=== PATIENT | female | born 1955 | race Caucasian/White ===

== ENCOUNTER → 2016-09-21 | Day surgery (SDC) | payer BC ==
[~2016-09-21] MED LIST: ASCO500T2 PO; ATOR40TA PO; CALC500T50 PO; CHOL400C2 PO; DENO60DI SQ; ESTR1TAB12 PO; ESTR1TAB13 PO; EZET1TAB5 PO; FENTANYL PF 100 MCG/2 ML VIAL. IV PRN; GLUCOSAMIN PO; IV RINGERS,LACTATED 1000ML 1,000 ML IV SCH; LIDOCAINE 1% 1 ML SYRINGE. ID PRN; LIDOCAINE 2% PF Vial for OR 5 ML VIAL. ONE; LUTEN; MAGN27TA3 PO; MULT1TAB97 PO; OMEG1CAP16 PO; ONDANSETRON PF 4 MG/2 ML VIAL. IV PRN; PROCHLORPERAZINE 10 MG/2 ML VIAL. IV PRN; PROPOFOL 20 ML IV ONE; VITA1TAB54 PO; ZINC50TA29 PO
[2016-09-21 09:10] VITALS: BP 140/71
== END ==
LOC: ENDOS 07:33
PROVIDERS: ATTEND Internal Medicine Gastroenterology
DX: K22.2 Esophageal obstruction (principal); K29.50 Unspecified chronic gastritis without bleeding; E78.00 Pure hypercholesterolemia, unspecified; I10 Essential (primary) hypertension; M81.0 Age-related osteoporosis without current pathological fracture; M19.90 Unspecified osteoarthritis, unspecified site; Z72.89 Other problems related to lifestyle
CPT/HCPCS: 43235; 43450; J2704

== ENCOUNTER 2021-09-29 07:42 | Outpatient (CLI) | payer MEDICARE, BC ==
[~2021-09-29] VITALS: Ht 170.2 cm; Wt 76.0 kg
[~2021-09-29 07:42] MED LIST changes: -ASCO500T2 PO; +ASCO500T4 PO; -CALC500T50 PO; +CALC500T54 PO; +ESTR-85 PO; -ESTR1TAB12 PO; +EZET1TAB35 PO; -EZET1TAB5 PO; -FENTANYL PF 100 MCG/2 ML VIAL. IV PRN; +HYDROmorphone 2 MG/ML INJ. IVP PRN; -LIDOCAINE 1% 1 ML SYRINGE. ID PRN; -LIDOCAINE 2% PF Vial for OR 5 ML VIAL. ONE; +MORPHINE SULFATE 2 MG/ML INJ. IVP PRN; -OMEG1CAP16 PO; +OMEG1CAP27 PO; -ONDANSETRON PF 4 MG/2 ML VIAL. IV PRN; -PROCHLORPERAZINE 10 MG/2 ML VIAL. IV PRN; +PROCHLORPERAZINE 10 MG/2 ML VIAL. IVP PRN; -PROPOFOL 20 ML IV ONE; -ZINC50TA29 PO; +ZINC50TA39 PO; +fentaNYL PF VIAL 100 MCG/2 ML VIAL IVP PRN
[2021-09-29 07:43] VITALS: BP 119/82
[2021-09-29] MEDS ORDERED: FURO40TA4 PO (07:43)
[2021-09-29] MEDS ORDERED: RIVA20TA2 PO (07:43)
[2021-09-29] MEDS ORDERED: VALS160T3 PO (07:43)
[2021-09-29] MEDS ORDERED: BISO5TAB8 PO (07:43)
--- NOTE | 2021-09-29 07:45 | EKG ---
[facility] [address] [place] [address] Test Date: 2021-09-29 Test Time: 07:40:52 Pat Name: BRINA LABOY Department: Room: Gender: F Rn Ostomy: : 1955 Requested By: MENDY MÁRQUEZ Order Number: [id number] Reading MD: Eugenio Maya MD Measurements Intervals [place] Rate: 72 P: [place]: QRS: 2 QRSD: 140 T: 170 QT: 458 QTc: 503 Interpretive Statements ATRIAL FIBRILLATION LBBB Electronically Signed On 10-02-2021 8:30:19 OSTEOLOGIST by Eugenio Maya MD
[2021-09-29 07:50] LABS: HEMATOCRIT 38.7 % (36.0-47.0); HEMOGLOBIN 12.7 g/dL (12.0-15.5); RED BLOOD COUNT 4.19 x10^6/uL (3.50-5.40); RED CELL DISTRIBUTION WIDTH 13.8 % (11.5-14.5); WHITE BLOOD COUNT 4.4 x10^3/uL (4.0-11.0)
[2021-09-29] MEDS ORDERED: LIDOCAINE 1% PF 2 ML VIAL. ONE (07:52)
[2021-09-29] MEDS ORDERED: IODIXANOL 320 MG/ML 100 ML VIAL. ONE (07:52)
[2021-09-29 07:57] LABS: CALCIUM 8.4 mg/dL (8.5-10.1); CREATININE 0.8 mg/dL (0.6-1.0); GFR 71.8; POTASSIUM 3.7 mmol/L (3.5-5.1)
[2021-09-29] MEDS ORDERED: LIDOCAINE 1% PF 2 ML VIAL. INJ ONE (08:00)
[2021-09-29] MEDS ORDERED: fentaNYL PF VIAL 100 MCG/2 ML VIAL ONE (08:00)
[2021-09-29] MEDS ORDERED: NITROGLYCERIN 200 MCG/2 ML SYRINGE FOR CATH/VASC LAB. IART ONE (08:00)
[2021-09-29] MEDS ORDERED: HEPARIN for IV BOLUS 10,000 UNIT/10 ML VIAL. IART ONE (08:00)
[2021-09-29] MEDS ORDERED: fentaNYL PF VIAL 100 MCG/2 ML VIAL IV ONE (08:00)
[2021-09-29] MEDS ORDERED: IODIXANOL 320 MG/ML 100 ML VIAL. IART ONE (08:00)
[2021-09-29] MEDS ORDERED: VERAPAMIL 5 MG/2 ML VIAL. IART ONE (08:00)
[2021-09-29] MEDS ORDERED: MIDAZOLAM HCL/PF 2 MG/2 ML VIAL. IV ONE (08:00)
[2021-09-29] MEDS ORDERED: VERAPAMIL 5 MG/2 ML VIAL. ONE (08:01)
[2021-09-29] MEDS ORDERED: HEPARIN for IV BOLUS 10,000 UNIT/10 ML VIAL. ONE (08:01)
[2021-09-29] MEDS ORDERED: NITROGLYCERIN 200 MCG/2 ML SYRINGE FOR CATH/VASC LAB. ONE (08:01)
[2021-09-29] MEDS ORDERED: MIDAZOLAM HCL/PF 2 MG/2 ML VIAL. ONE (08:01)
[2021-09-29 08:02] LABS: PROTHROMBIN TIME PATIENT 17.8 SEC (11.7-14.0)
[2021-09-29] MEDS ORDERED: CONTRAST GIVEN. MC PRN (08:15)
[2021-09-29] MEDS ORDERED: DENO60DI SQ (08:21)
[2021-09-29] MEDS ORDERED: AMIODARONE 150 MG/3 ML VIAL ONE (09:09)
[2021-09-29] MEDS ORDERED: AMIODARONE 150 MG/3 ML VIAL IVP ONE (09:15)
[2021-09-29 09:23] VITALS: BP 74/54
--- NOTE | 2021-09-29 09:28 | PDOC ---
MODERATE SEDATION ASSESSMENT RISKS/ALTERNATIVES Risks/Alternatives Risks and alternatives of this type of sedation and procedure discussed with: RISK/ALTERNATIVES: Patient H & P ON CHART H & P H & P on chart and reviewed for co-morbid conditions and appropriate labs. H&P ON CHART: Yes STATUS PREG STATUS ASSESSED: N/A MEDS/ALLERGIES REVIEWED Meds/Allergies Reviewed Medications and Allergies including time and route of recently administered narcotics and sedatives. MEDS/ALLERGIES REVIEWED: Yes ASA RATING ASA RATING: III AIRWAY ASSESSMENT Airway Assessment Airway patency, oral function limitations, presence of caps, crowns, dentures, partials, and ability to extend neck assessed. AIRWAY ASSESSMENT: Yes MALLAMPATI SCORE MALLAMPATI SCORE: II PRE-SEDATION ASSESSMENT PRE-SEDATION ASSESSMENT: Yes MENDY MÁRQUEZ MD Sep 29, 2021 09:28
[2021-09-29] MEDS ORDERED: AMIODARONE HCL 200 MG TABLET. PO ONE (09:30)
--- NOTE | 2021-09-29 09:31 | PDOC4 ---
Procedure Note Procedure: External cardioversion Indications: Atrial fibrillation Complications: None Procedural Details: An informed consent was obtained from patient. Anesthesiology team administered intravenous propofol for deep sedation. Patient was then given 200 J synchronized biphasic DC shock therapies twice without any success with conversion to sinus rhythm. She was then given 150 mg of intravenous amiodarone bolus followed by another 200 J synchronized biphasic DC shock therapy with successful conversion to sinus rhythm. She tolerated the procedure well. She was hemodynamically stable without any neurological deficits at the end of procedure. There were no immediate complications. Conclusions: Successful external cardioversion of atrial fibrillation to sinus rhythm MENDY MÁRQUEZ MD Sep 29, 2021 09:31
--- NOTE | 2021-09-29 09:37 | CARD ---
MR#: [id number] Date of Study: 09/29/2021 Ordering Physician: MENDY ALFARO, Referring Physician: MENDY ALFARO, Tech: RT Alexandrea(R) APPROVED REPORT Technologist: RT Alexandrea(R) Nurse: Michelle Mena RN Procedure(s) performed: 1. Left heart catheterization, selective coronary angiography and left ventr iculography 2. Successful external cardioversion of atrial fibrillation to sinus rhythm FL TIME: 2.6 MINS DOSE: 38 GYCM2 CONTRAST: 95 ML MODERATE SEDATION: 20 MIN INDICATION The indication(s) include : Cardiomyopathy, atrial fibrillation. [facility] Clinical Frailty Scale [facility] Clinical Frailty Scale: Mildly Frail Heart Failure Heart Failure: Yes If Yes, Newly Diagnosed: No If Yes, HF Type: Systolic If Yes, NYHA Class: Class II CASE TECHNIQUE IV conscious sedation was used throughout procedure with appropriate monitoring and was performed in the presence of a registered nurse who was an independent trained observer other than the physician p erforming the procedure. During this case, Fluoroscopy and low osmolar contrast were used for imaging . Specimen(s) Removed: No Estimated Blood loss: 10 cc's. PROCEDURE NARRATIVE After explaining the risks, benefits and alternative options, informed consent was obtained from gabe ent. Patient was brought to the cardiac [place] and right wrist was prepped and draped in the usual fashion after confirming a positive modified Amish's test. Arterial access was obtained in the rig t radial artery and a 6 German sheath was inserted. 6 German Alberto catheter was used to perform hebert ective angiography of the left and right coronary arteries. 6 German pigtail catheter was used to pe rform left ventriculography. Patient tolerated the procedure well. Hemostasis was achieved using TR band. Patient subsequently underwent successful external cardioversion, reported separately. There were no immediate complications. The following findings were noted. FINDINGS 1. Hemodynamics: Left ventricular end-diastolic pressure of 23 mmHg. No pullback gradient across th e aortic valve. 2. Left ventriculography: Severe left ventricular systolic dysfunction with ejection fraction estima caitie at 15 to 20%. 2+ mitral regurgitation seen. 3. Coronary angiography: a. The left main coronary artery arose from the left sinus of Valsalva, gave rise to the left anteri or descending and left circumflex arteries and did not show any significant stenosis. b. The left anterior descending artery did not show any significant stenosis. c. The left circumflex artery did not show any significant stenosis. d. The right coronary artery was a large and dominant vessel arising from the right sinus of Valsalv a that did not show any significant stenosis. Conclusion 1. No significant coronary artery disease 2. Severe left ventricular systolic dysfunction with ejection fraction estimated at 15 to 20%. Recommendations Optimization of medical therapy for severe nonischemic cardiomyopathy and repeat 2D echo in 3 months to evaluate the need for AICD implantation. Signed by : Mendy Alfaro, Electronically Approved : 09/29/2021 09:37:21
[2021-09-29] MEDS ORDERED: AMIO400T5 PO (10:00)
[2021-09-29] MEDS ORDERED: AMIO200T53 PO (10:00)
--- NOTE | 2021-09-29 10:16 | NUR ---
RX for Amiodarone called in to [facility] in [place]. Amiodarone 400mg PO BID x 1 week, then Amiodarone 200mg PO daily x 3 refills. CATRACHO CLARK
[2021-09-29 11:30] VITALS: BP 114/62
== END 2021-09-29 12:50 | disposition home or self-care (01) ==
LOC: CCL 07:42
PROVIDERS: ATTEND Internal Medicine Cardiovascular Disease
DX: I48.91 Unspecified atrial fibrillation (principal); I42.8 Other cardiomyopathies; I10 Essential (primary) hypertension; E78.00 Pure hypercholesterolemia, unspecified; M81.0 Age-related osteoporosis without current pathological fracture; M19.90 Unspecified osteoarthritis, unspecified site; Z87.440 Personal history of urinary (tract) infections; Z79.82 Long term (current) use of aspirin; Z79.899 Other long term (current) drug therapy; Z98.890 Other specified postprocedural states; Z72.89 Other problems related to lifestyle; Z88.8 Allergy status to other drugs, medicaments and biological substances
CPT/HCPCS: 36415; 80048; 85027; 85610; 92960; 93005; 93458; 99152; C1769; C1894; J0282; J1644; J2250; J3010; J3490; Q9967

== ENCOUNTER 2021-10-27 09:35 | Day surgery (SDC) | payer MEDICARE, BC ==
[~2021-10-27] VITALS: Ht 172.7 cm; Wt 78.0 kg
[~2021-10-27 09:35] MED LIST changes: +AMIO200T53 PO; +AMIO400T5 PO; +BISO5TAB8 PO; +FURO40TA4 PO; -HYDROmorphone 2 MG/ML INJ. IVP PRN; -MORPHINE SULFATE 2 MG/ML INJ. IVP PRN; +RIVA20TA2 PO; +VALS160T3 PO
[2021-10-27 09:56] VITALS: BP 167/74
[2021-10-27 10:17] LABS: HEMATOCRIT 39.3 % (36.0-47.0); HEMOGLOBIN 12.9 g/dL (12.0-15.5); RED BLOOD COUNT 4.18 x10^6/uL (3.50-5.40); RED CELL DISTRIBUTION WIDTH 14.2 % (11.5-14.5)
[2021-10-27] MEDS ORDERED: PROPOFOL 10 MG/ML (20ML) VIAL. IV ONE (10:24)
[2021-10-27 10:26] LABS: CALCIUM 9.3 mg/dL (8.5-10.1); CREATININE 0.9 mg/dL (0.6-1.0); GFR 62.6; POTASSIUM 4.1 mmol/L (3.5-5.1)
[2021-10-27 10:27] LABS: PROTHROMBIN TIME PATIENT 28.4 SEC (11.7-14.0)
[2021-10-27] MEDS ORDERED: LIDOCAINE 1% PF 5 ML VIAL. ONE (11:03)
--- NOTE | 2021-10-27 11:26 | PDOC4 ---
Procedure Note Procedure: External cardioversion Indications: Atrial fibrillation Complications: None Procedural Details: After explaining the risk, benefits and alternative options, informed consent was obtained from patient. Anesthesiology team administered intravenous propofol for deep sedation. Patient was then given 200 J of synchronized biphasic DC shock therapy with successful conversion of atrial fibrillation to sinus rhythm. She was hemodynamically stable without any neurological deficits at the end of procedure. She tolerated the procedure well. There were no immediate complications Conclusions: Successful cardioversion of atrial fibrillation to sinus rhythm MENDY MÁRQUEZ MD Oct 27, 2021 11:26
--- NOTE | 2021-10-27 11:50 | EKG ---
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
[2021-10-27 12:00] VITALS: BP 118/65
== END 2021-10-27 12:15 | disposition home or self-care (01) ==
LOC: SURG 09:35
PROVIDERS: ATTEND Internal Medicine Cardiovascular Disease
DX: I48.91 Unspecified atrial fibrillation (principal); I10 Essential (primary) hypertension; E78.00 Pure hypercholesterolemia, unspecified; M19.90 Unspecified osteoarthritis, unspecified site; M81.0 Age-related osteoporosis without current pathological fracture; Z87.440 Personal history of urinary (tract) infections; Z79.899 Other long term (current) drug therapy; Z98.890 Other specified postprocedural states; Z72.89 Other problems related to lifestyle; Z88.8 Allergy status to other drugs, medicaments and biological substances
CPT/HCPCS: 36415; 80048; 85027; 85610; 85730; 92960; 93005; J2704; J3490